=== PATIENT | female | born 1965 | race Native Hawaiian/Other Pacific Islander ===

== ENCOUNTER 2016-09-08 07:47 | Day surgery (SDC) | payer OTHER | END 2016-09-08 10:20 | disposition home or self-care (01) | LOC: OR 07:47 | PROC: 0DJD8ZZ Inspection of Lower Intestinal Tract, Via Natural or Artificial Opening Endoscopic (ICD-10-PCS; principal; 2016-09-08) | DX: K64.8 Other hemorrhoids (principal); Z12.11 Encounter for screening for malignant neoplasm of colon | CPT/HCPCS: G0121; J2250; J2704 ==

== ENCOUNTER 2017-02-05 08:49 | Outpatient (CLI) | payer OTHER | END 2017-02-05 19:07 | disposition home or self-care (01) | LOC: LABW 08:49 | DX: Z79.899 Other long term (current) drug therapy (principal); Z51.81 Encounter for therapeutic drug level monitoring | CPT/HCPCS: 36415; 80164 ==

== ENCOUNTER 2020-04-19 08:52 | Outpatient (CLI) | payer OTHER | END 2020-04-19 23:26 | disposition home or self-care (01) | LOC: MAMMO 08:52 | DX: Z12.31 Encounter for screening mammogram for malignant neoplasm of breast (principal) ==

== ENCOUNTER 2020-06-19 11:28 | Day surgery (SDC) | payer OTHER ==
[2020-06-17 14:13] LABS: PLATELET COUNT 154 K/uL (152-353)
[2020-06-17 14:22] LABS: POTASSIUM 4.2 mmol/L (3.6-5.2)
== END 2020-06-20 16:33 | disposition home or self-care (01) ==
LOC: OR 11:28
PROVIDERS: ATTEND Internal Medicine Gastroenterology
PROC: 0DBN8ZZ Excision of Sigmoid Colon, Via Natural or Artificial Opening Endoscopic (ICD-10-PCS; principal; 2020-06-19)
PROC: 0DBL8ZZ Excision of Transverse Colon, Via Natural or Artificial Opening Endoscopic (ICD-10-PCS; 2020-06-19)
DX: K63.5 Polyp of colon (principal); D12.3 Benign neoplasm of transverse colon; K64.8 Other hemorrhoids; Z12.11 Encounter for screening for malignant neoplasm of colon
CPT/HCPCS: 80053; 85027; J2704

== ENCOUNTER 2020-11-06 10:31 | Outpatient (CLI) | payer OTHER | END 2020-11-06 20:10 | disposition home or self-care (01) | LOC: RAD 10:31 | PROVIDERS: ATTEND Nurse Practitioner Primary Care | DX: K59.00 Constipation, unspecified (principal) ==

== ENCOUNTER 2021-02-27 19:07 | Emergency (ER) | payer OTHER ==
[~2021-02-27] VITALS: Ht 165.1 cm; Wt 72.6 kg
[2021-02-27 19:59] LABS: PLATELET COUNT 181 K/uL (152-353)
[2021-02-27 20:11] LABS: POTASSIUM 4.4 mmol/L (3.6-5.2)
[2021-02-27 20:55] VITALS: BP 118/70; TEMP 98.4
== END 2021-02-27 20:55 ==
LOC: ED 19:07
PROVIDERS: Emergency Medicine
DX: R51.9 Headache, unspecified (principal); F79 Unspecified intellectual disabilities
CPT/HCPCS: 80048; 85027; 99283; J1170; J2405

== ENCOUNTER 2022-03-10 08:37 | Outpatient (CLI) | payer OTHER | END 2022-03-10 19:52 | disposition home or self-care (01) | LOC: MAMMO 08:37 | PROVIDERS: ATTEND Nurse Practitioner Family | DX: Z12.31 Encounter for screening mammogram for malignant neoplasm of breast (principal) ==

== ENCOUNTER 2023-04-15 08:54 | Outpatient (CLI) | payer OTHER | END 2023-04-15 18:35 | disposition home or self-care (01) | LOC: MAMMO 08:54 | PROVIDERS: ATTEND Family Medicine | DX: Z12.31 Encounter for screening mammogram for malignant neoplasm of breast (principal) ==